=== PATIENT | female | born 1955 | race Caucasian/White ===

== ENCOUNTER → 2017-05-23 | Outpatient (CLI) | payer BC ==
--- NOTE | 2017-05-23 18:13 | Diagnostic Imaging Report ---
INDICATION: Digital mammogram bilateral screening. This study was compared to the prior exams of 04/30/16, 04/24/15 and 04/20/14. At this time, there are no current complaints. The current study was also evaluated with a Computer Aided Detection (CAD) system. FINDINGS: There are scattered fibroglandular densities in both breasts which could obscure a lesion. Overall, there does not appear to have been any significant change when compared to the prior exam. No primary or secondary sign of malignancy is noted. IMPRESSION: There is no radiographic evidence for malignancy. ACR BI-RADS Category 1: Negative. Result letter will be mailed to the patient. Note: At least 10% of breast cancer is not imaged by mammography. Dictated by: Dictated on workstation # [id number]
== END ==
LOC: RAD 09:46
PROVIDERS: ATTEND Obstetrics & Gynecology
DX: Z12.31 Encounter for screening mammogram for malignant neoplasm of breast (principal)
CPT/HCPCS: 77067

== ENCOUNTER → 2018-06-26 | Outpatient (CLI) | payer BC ==
--- NOTE | 2018-06-26 14:40 | Diagnostic Imaging Report ---
INDICATION: Routine screening. COMPARISON: 05/23/2017 and 04/30/2016. TECHNIQUE: 2D and 3D bilateral screening mammography was performed with CAD. FINDINGS: Both breasts are heterogeneously dense, limiting the sensitivity of mammography. The benign nodular density in the right breast appears stable. No dominant mass or malignant appearing microcalcifications are seen. The axillae are unremarkable. IMPRESSION: No mammographic features suspicious for malignancy are identified. ACR BI-RADS Category 2: Benign findings. Result letter will be mailed to the patient. Note: At least 10% of breast cancer is not imaged by mammography. Dictated by: Dictated on workstation # [id number]
== END ==
LOC: RAD 11:48
PROVIDERS: ATTEND Obstetrics & Gynecology
DX: Z12.31 Encounter for screening mammogram for malignant neoplasm of breast (principal)
CPT/HCPCS: 77067

== ENCOUNTER → 2020-06-30 | Outpatient (CLI) | payer BC ==
--- NOTE | 2020-06-30 15:25 | Diagnostic Imaging Report ---
INDICATION: Routine screening. COMPARISON is made with prior mammograms of 06/26/2018 and 05/23/2017. 2-D and 3-D bilateral screening mammography was performed with CAD. Scattered fibroglandular densities are identified bilaterally. A benign nodule outer right breast is stable. No spiculated mass or malignant appearing microcalcifications are seen. Axillae are unremarkable. IMPRESSION: BI-RADS Category 2 No mammographic features suspicious for malignancy are identified. Dictated by: Dictated on workstation # [id number]
== END ==
LOC: RAD 08:47
PROVIDERS: ATTEND Obstetrics & Gynecology
DX: Z12.31 Encounter for screening mammogram for malignant neoplasm of breast (principal)
CPT/HCPCS: 77063; 77067

== ENCOUNTER → 2020-07-18 | Outpatient (CLI) | payer BC | LOC: CARD 08:31 | PROVIDERS: ATTEND Internal Medicine Cardiovascular Disease | DX: R07.9 Chest pain, unspecified (principal); I10 Essential (primary) hypertension | CPT/HCPCS: 93306 ==

== ENCOUNTER → 2020-07-19 | Outpatient (CLI) | payer BC ==
[~2020-07-19] VITALS: Ht 170 cm; Wt 80.0 kg
[~2020-07-19] MED LIST: CATHETER FLUSH 10 ML SYR IV PRN
[2020-07-19 09:23] VITALS: BP 149/89
--- NOTE | 2020-07-19 12:20 | Cardiology Stress Test Report ---
Stress Test Report Date of Procedure/Referring: Date of Procedure: Jul 19, 2020 PCP Osmel Verde MD Admitting Physician Jory Canas MD Indications: CP Baseline Heart Rate: 80 Baseline Blood Pressure: Blood Pressure Systolic: 149 Blood Pressure Diastolic: 89 Vital Signs Date Time Temp Pulse Resp B/P (MAP) Pulse Ox O2 Delivery O2 Flow Rate FiO2 07/19/20 09:23 87 149/89 (109) Baseline Vital Signs Vital Signs Date Time Temp Pulse Resp B/P (MAP) Pulse Ox O2 Delivery O2 Flow Rate FiO2 07/19/20 09:23 87 149/89 (109) Baseline EKG: Baseline EKG: NSR Summary: After explaining the procedure and details to the patient, she signed the consent and was brought to the stress nuclear laboratory. Patient exercised on standard Agustin protocol, EKG, heart rate and blood pressure were monitored continuously, resting and stress doses of radio tracer were injected, imaging was acquired and reviewed in the short axis, horizontal long axis and vertical long axis views Patient was able to exercise for a total of 7:30 minutes on Agustin protocol, METs 9.1 Maximum heart rate 145 Maximum blood pressure 205/102 Stress EKG, Minimal nondiagnostic changes Recovery EKG, Return to baseline TID: 0.97 SSS: 0 SDS: 0 EF: 56 Conclusion: 1. Good exercise tolerance for 7 minutes 30 seconds on standard Agustin protocol, 9.1 METs achieving 92 percent of maximum expected heart rate 2. Hypertensive response to exercise with peak blood pressure 205/102 return to baseline during recovery 3. Nondiagnostic EKG changes with exercise returned to baseline during recovery 4. No significant ischemia or infarction on SPECT images 5. Normal LV size, EF 56 percent OSMEL VERDE MD Jul 19, 2020 12:20
== END ==
LOC: CARD 08:30
PROVIDERS: ATTEND Internal Medicine Cardiovascular Disease
DX: R07.9 Chest pain, unspecified (principal); I10 Essential (primary) hypertension
CPT/HCPCS: 78452; 93017; A9502

== ENCOUNTER → 2022-08-08 | Outpatient (CLI) | payer MEDICARE, OTHER ==
--- NOTE | 2022-08-08 16:18 | Diagnostic Imaging Report ---
Indication: Routine screening. Comparison is made with prior mammograms from 06/30/2020 and 06/26/2018. 2-D and 3-D bilateral screening mammography was performed with CAD. Both breasts are heterogeneously dense, limiting the sensitivity of mammography. A benign nodule in the upper outer right breast appears stable. No new mass or malignant-appearing microcalcifications are seen. There are benign calcifications present. Axillae are unremarkable. IMPRESSION: BI-RADS Category 2 No mammographic features suspicious for malignancy are identified. ACR BI-RADS Category 2: Benign findings. Result letter will be mailed to the patient. Note: At least 10% of breast cancer is not imaged by mammography. Dictated by: Dictated on workstation # [id number]
== END ==
LOC: RAD 10:00
PROVIDERS: ATTEND Surgery
DX: Z12.31 Encounter for screening mammogram for malignant neoplasm of breast (principal)
CPT/HCPCS: 77063; 77067